=== PATIENT | female | born 1980 | race Caucasian/White ===

== ENCOUNTER 2021-02-08 05:34 | Day surgery (SDC) | payer OTHER ==
[2021-02-07 11:38] VITALS: BMI 27.0
[2021-02-08 09:27] VITALS: TEMP 97.8
[2021-02-08 11:12] VITALS: BP 108/74; PULSE 65
== END 2021-02-08 10:30 | disposition home or self-care (01) ==
LOC: JASU-ENDO 05:34
PROVIDERS: ATTEND Internal Medicine Gastroenterology
PROC: 0DBP8ZX Excision of Rectum, Via Natural or Artificial Opening Endoscopic, Diagnostic (ICD-10-PCS; principal; 2021-02-08)
DX: K62.5 Hemorrhage of anus and rectum (principal); K64.8 Other hemorrhoids; K64.4 Residual hemorrhoidal skin tags
CPT/HCPCS: 81025; 88305-TC

== ENCOUNTER 2021-02-15 04:24 | Day surgery (SDC) | payer OTHER ==
[2021-02-13 08:16] VITALS: BMI 27.6
[2021-02-15 10:08] VITALS: BP 114/74; PULSE 60; TEMP 97
== END 2021-02-15 10:30 | disposition home or self-care (01) ==
LOC: JASU-ENDO 04:24
PROVIDERS: ATTEND Internal Medicine Gastroenterology
PROC: 0DB68ZX Excision of Stomach, Via Natural or Artificial Opening Endoscopic, Diagnostic (ICD-10-PCS; principal; 2021-02-15 08:45)
DX: K29.50 Unspecified chronic gastritis without bleeding (principal); K92.1 Melena; R13.10 Dysphagia, unspecified
CPT/HCPCS: 81025; 88305-TC; 88342-TC